=== PATIENT | female | born 1975 | race Native Hawaiian/Other Pacific Islander ===

== ENCOUNTER 2018-07-19 15:59 | Outpatient (CLI) | payer OTHER ==
--- NOTE | 2018-07-20 10:29 | MRI Report ---
Reason: PAIN IN UNSPECIFED KNEE Procedure Date: 07/19/2018 Accession Number: [id number] / [id number] Procedure: MRI - Knee LT W/O CPT Code: FULL RESULT: EXAM: LEFT KNEE MRI WITHOUT CONTRAST EXAM DATE: 07/19/2018 04:38 PM. CLINICAL HISTORY: Old injury with instability and chronic pain. COMPARISON: None. TECHNIQUE: Multiplanar, multisequence T1-weighted and fluid-sensitive sequences of the knee without contrast. Other: None. FINDINGS: Bones: There are subcortical cysts in the anterior intercondylar region of the tibia. Articular Cartilage: Unremarkable. Medial Meniscus: The medial meniscus is intact. Lateral Meniscus: There is a 7 x 7 x 7 mm anterior parameniscal cyst adjacent to the anterior horn of the lateral meniscus. There is myxoid degeneration of the anterior horn of the meniscus. The meniscus appears otherwise unremarkable. Cruciate Ligaments: The anterior and posterior cruciate ligaments are intact. Collateral Ligaments: There is an old grade 2 rupture of the lateral collateral ligament at its femoral attachment. Tendons: The quadriceps, patellar, semimembranosus, and popliteus tendons are unremarkable. Musculature: No edema or fatty atrophy. Other: No effusion. No popliteal cyst. No loose bodies. The medial and lateral retinacula are intact. The subcutaneous tissues and fat pads are unremarkable. IMPRESSION: 1. Findings suggestive of prior trauma to the anterior margin of the intercondylar region of the tibia and the anterior horn of the lateral meniscus. Old grade 2 tear of the lateral collateral ligament. [facility] MUSCULOSKELETAL RADIOLOGY SECTION
== END 2018-07-19 16:00 | disposition home or self-care (01) ==
LOC: DI 15:59
PROVIDERS: ATTEND Family Medicine
DX: M23.8X2 Other internal derangements of left knee (principal); M25.562 Pain in left knee